=== PATIENT | female | born 1965 | race Caucasian/White ===

== ENCOUNTER 2020-12-23 13:11 | Emergency (ER) | payer OTHER ==
[~2020-12-23] VITALS: Ht 154.9 cm; Wt 54.4 kg
[2020-12-23 13:22] VITALS: BP 134/97
[2020-12-23] MEDS ORDERED: AMOX-430 PO (13:40)
[2020-12-23] MEDS ORDERED: IBUP-1957 PO (13:40)
[2020-12-23] MEDS ORDERED: TDAP [DIPH/PERTUSSIS/TET] 0.5 ML VIAL IM ONE ×2 (13:52→14:00)
--- NOTE | 2020-12-23 14:13 | NUR ---
Patient discharged to home in stable condition. Written and verbal after care instructions given. Patient verbalizes understanding of instruction.
== END 2020-12-23 14:13 | disposition home or self-care (01) ==
LOC: ER 13:18
DX: S61.452A Open bite of left hand, initial encounter (principal); L03.114 Cellulitis of left upper limb; W54.0XXA Bitten by dog, initial encounter; Y93.89 Activity, other specified; Y92.89 Other specified places as the place of occurrence of the external cause; Y99.8 Other external cause status
CPT/HCPCS: 90715